=== PATIENT | female | born 1980 | race Caucasian/White ===

== ENCOUNTER 2023-01-05 09:50 | Day surgery (SDC) | payer BC, SELFPAY ==
[2023-01-05 10:23] VITALS: BMI 18.6
[2023-01-05 10:36] VITALS: BP 125/74; PULSE 56; RESP 18; TEMP 37.1; O2SAT 99
[2023-01-05 11:08] LABS: Anion Gap 14.3 mEq/L (5-15); Blood Urea Nitrogen 19 mg/dl (7-17); Calcium 9.3 mg/dl (8.4-10.2); Carbon Dioxide 30 mmol/L (22.0-30.0); Chloride 99 mmol/L (98-107); Creatinine Clearance Estimated 122 mL/min (50-200); Estimated Glomerular Filt Rate 136 ml/min (>60); GFR (African American) 165 ML/MIN (>60); Glucose 121 mg/dl (74-100); Potassium 3.3 mmoL/L (3.5-5.1); Sodium 140 mmol/L (136-145)
[2023-01-05 11:11] LABS: Basophils % 0.2 % (0.1-2.0); Eosinophils # 0.1 K/mm3 (0.0-0.4); Eosinophils % 0.5 % (0.1-12.0); Hemoglobin 14.5 g/dL (12.2-16.2); Lymphocytes # 1.9 K/mm3 (0.7-4.5); Lymphocytes % 17.8 % (10-50); Mean Corpuscular HGB Conc 33.7 g/dL (31.8-35.4); Mean Corpuscular Hemoglobin 32.5 pg (27.0-31.2); Mean Corpuscular Volume 96.2 fl (81-99); Mean Platelet Volume 8.5 fl (7.4-10.4); Monocytes # 0.5 K/mm3 (0.1-1.0); Monocytes % 4.9 % (1.7-9.3); Neutrophils # 8.1 K/mm3 (1.8-7.8); Neutrophils % 76.6 % (37.0-80.0); Platelet Count 256 K/mm3 (142-424); Red Blood Count 4.46 M/mm3 (4.20-5.40); Red Cell Distribution Width 12.4 % (11.5-17.5); White Blood Count 10.6 K/mm3 (4.8-10.8)
[2023-01-05 11:34] LABS: Urine Pregnancy, HCG Qual. Negative (Negative)
--- NOTE | 2023-01-05 11:53 | EXP.ANES.CKL ---
[facility] Disclaimer: The information contained in this section may have been updated after the patient was seen, as this information can be updated by other users. Medical History 1st MTP arthritis Anxiety COPD (chronic obstructive pulmonary disease) GERD (gastroesophageal reflux disease) Implantable intrathecal infusion pump present Smoker Spinal cord neurostimulator device in situ Surgical History H/O breast augmentation H/O spinal fusion History of lumbar discectomy Hx of appendectomy Hx of hysterectomy Family History (Updated 01/05/23 @ 10:33 by Narinder Lunsford RN) Other No significant family history Social History Smoking Status: Current every day smoker alcohol intake: never substance use type: denies use current occupational status: other Travel in the last 8 weeks: None [facility] Anesthesia Checklist Patient Identification Patient Identification: Arm Band, Family and Verbal (Name & ) Structural Data Admitted From: Home Planned Operative Procedure/s: Revision/ I&D SC Stim pocket Consent for Planned Operative Procedure(s) Verified: Yes Verified Documents: Surgical Consent and History and Physical NPO Status Verified Time NPO: 20:00 Chart Verification Results Verified: CBC, BMP and HCG Additional verifications Patient : No Anesthesia Reactions: No Hx Blood Transfusions: No Blood Transfusion Reaction: No Cephalosporin Allergy: No Previous Colonoscopy: No Cardiovascular Assessment Heart Sounds: S1 & S2 Pulse Rhythm: Irregular Peripheral Edema: No Airway Assessment Mallampati Score:: Class II C-Spine Mobility Assessed: Yes (FROM) TMJ Mobility Assessed: Yes Dentition: Poor Dentition (Nothing loose per pt.) Neurological Assessment Level of Consciousness: Awake, Alert, Appropriate and Follows Commands Hx Seizures: No Numbness or tingling in extremities: No Anesthesia Plan Anesthesia Risk discussed: Yes Anesthesia Plan: Verified ASA Class: II Anesthesia Type: MAC
[2023-01-05 14:08] VITALS: BP 107/67; PULSE 67; RESP 17; TEMP 37.1; O2SAT 97
[2023-01-05 14:18] VITALS: BP 107/68; PULSE 62; RESP 18; O2SAT 99
[2023-01-05 14:28] VITALS: BP 107/65; PULSE 62; RESP 18; O2SAT 99
--- NOTE | 2023-01-05 14:35 | EXP.OP.NOTE ---
Date of procedure: 01/05/23 Pre-op Diagnosis:: Fluid collection at the pump pocket Post-op Diagnosis:: Same Procedure performed:: I&D of the pump pocket with pursestring around the intrathecal catheter as a goes into the spine to decrease CSF leak. Surgeon:: Yoni Worthy MD [employer] TESTER:: Other Anesthesia: MAC Estimated blood loss (mL): 5 Clinical Note:: This patient is a pleasant 42-year-old white female who has a intrathecal morphine pain pump in place. She was doing fine immediately postop after pump placement however she started to develop fluid collections into the pump pocket. We will drain this twice once it was 70 mL the second time was 100 mL. We are scheduling her for revision and exploration and she had broke through the skin with leakage of fluid we brought her to [place] for urgent I&D and exploration. Operative findings:: CSF was tracking from the catheter all the way to the pocket from the back Operative note:: Informed consent was obtained the risk and benefits of the procedure were explained to the patient. Patient was taken to the operating room placed prone on the procedure table. She was prepped and draped in sterile fashion. The skin and subcutaneous tissues overlying the pocket were anesthetized using lidocaine. I made an incision and drained fluid which was clear from around the pocket. The pump was taken out of the pocket. There was CSF seen coming around the catheter from the back. We did access the pump sideport we were not able to withdraw any CSF through the sideport. We then anesthetized the back incision made an incision and dissected out the anchor and the catheter. We dissected down to the entrance of the catheter into the lumbar paraspinous fascia and we did a pursestring suture around the entrance of the catheter. We did not see any further CSF leakage around the catheter. We placed Surgicel and Gelfoam into the area around the catheter. We were able to withdraw CSF through the sideport. We retunneled the catheter to the pocket and attached catheter to the pump with a new pump connector pump was placed in the pocket. We checked again and we were able to freely withdraw clear clear CSF through the sideport. Both incisions were then closed with 2-0 Vicryl followed by 4-0 nylon. Patient was placed in an abdominal binder taken recovery in stable condition. Patient tolerated the procedure well with no complications. Pump was interrogated the catheter was primed and the pump was started back at patient's previous dose of 220 mcg/day of intrathecal morphine Patient was discharged home neurologic intact with good relief of pain symptoms and headache. Plan and disposition: I did talk to her and told her to lay flat is much as possible. We will follow-up with her in the dental clinic in 2 weeks for wound check and pump adjustment if needed Condition: stable Disposition: PACU Complications:: None
[2023-01-05 14:38] VITALS: BP 116/69; PULSE 63; RESP 16; O2SAT 99
--- NOTE | 2023-01-05 14:47 | P.PNANES_ITS ---
[facility] [place] Anesthesia Record Part I Anesthesia Record I Intake, IV Amount: 300 Hydration: Adequate Estimated blood loss (mL): 10 Urine output (mL): 0 Blood Products used (#): none Blood Pressure: 107/64 SaO2: 97 Pulse Rate: 68 Airway Patency: Patent Respiratory Rate: 16 Temperature: 98.8 F Patient is:: Awake (Talking) and Stable Stable to PACU at:: 14:13
[2023-01-05 14:48] VITALS: BP 107/64; PULSE 68; RESP 16; TEMP 37.1; O2SAT 97
== END 2023-01-05 14:40 | disposition home or self-care (01) ==
PROVIDERS: Visit Provider Anesthesiology
PROC: (CPT 62350; principal; 2023-01-05 11:30)
DX: G96.09 Other spinal cerebrospinal fluid leak (principal); T85.690A Other mechanical complication of cranial or spinal infusion catheter, initial encounter
CPT/HCPCS: 62350; 10140; 80048; 81025; 85025; 96374; C1755; J2405; J3370